=== PATIENT | female | born 1975 | race Caucasian/White ===

== ENCOUNTER → 2023-04-07 14:49 | Outpatient (REF) | payer OTHER, SELFPAY | LOC: RAD 14:49 | PROVIDERS: ATTENDING PHYSICIAN Student in an Organized Health Care Education/Training Program; FAMILY PHYSICIAN Nurse Practitioner Adult Health | DX: I25.42 Coronary artery dissection (principal); I21.4 Non-ST elevation (NSTEMI) myocardial infarction | CPT/HCPCS: 70496; 70498; Q9967 ==

== ENCOUNTER → 2023-04-17 14:03 | Outpatient (REF) | payer OTHER, SELFPAY | LOC: HWRAD 14:03 | PROVIDERS: ATTENDING PHYSICIAN Student in an Organized Health Care Education/Training Program; FAMILY PHYSICIAN Nurse Practitioner Adult Health | DX: I25.42 Coronary artery dissection (principal) | CPT/HCPCS: 74175; Q9967 ==

== ENCOUNTER 2023-04-26 13:20 | Outpatient (RCR) | payer OTHER, SELFPAY | END 2023-04-26 23:59 | disposition home or self-care (01) | LOC: CRHB 13:20 | PROVIDERS: ATTENDING PHYSICIAN Internal Medicine Interventional Cardiology | DX: I21.4 Non-ST elevation (NSTEMI) myocardial infarction (principal) | CPT/HCPCS: 93798 ==

== ENCOUNTER 2023-05-22 17:48 | Outpatient (RCR) | payer OTHER, SELFPAY | END 2023-05-22 23:59 | disposition home or self-care (01) | LOC: CRHB 17:48 | PROVIDERS: ATTENDING PHYSICIAN Internal Medicine Interventional Cardiology | DX: I25.2 Old myocardial infarction (principal); I25.42 Coronary artery dissection | CPT/HCPCS: 93797; 93798 ==

== ENCOUNTER 2023-05-29 17:51 | Emergency (ER) | payer OTHER, SELFPAY ==
[2023-05-29 18:06] VITALS: BP 130/76
[2023-05-29 18:26] LABS: % Basophils 0.4 % (0-2); % Eosinophils 1.3 % (0-6); % Immature Granulocytes 0.2 % (0-0.5); % Lymphocytes 28.5 % (20.5-51.1); % Monocytes 5.3 % (1.7-9.3); % Neutrophils 64.3 % (42.2-75.2); Absolute Eosinophils 0.1 10^3/uL (0-0.7); Absolute Lymphocytes 2.7 10^3/uL (1.2-3.4); Absolute Monocytes 0.5 10^3/uL (0.1-0.6); Absolute Neutrophils 6.1 10^3/uL (1.4-6.5); Hematocrit 38.4 % (37.0-47.0); Mean Corp Hgb Conc. 33.9 g/dL (33.0-37.0); Mean Corpuscular Volume 91.6 fL (81.0-99.0); Mean Platelet Volume 9.1 fL (7.4-10.4); Nucleated Red Blood Cells % 0 %; Platelet Count 269 10^3/uL (130-400); Red Blood Cell Count 4.19 10^6/uL (4.20-5.40); Red Cell Dist. Width 12.8 % (11.5-14.5); White Blood Cell Count 9.4 10^3/uL (4.8-10.8)
[2023-05-29 18:37] LABS: INR 0.97; PT 12.6 Sec (11.4-14.6)
[2023-05-29 18:45] LABS: ALT (SGPT) 20 U/L (0-35); AST (SGOT) 27 U/L (14-36); Albumin 4.4 g/dl (3.5-5.0); Alkaline Phosphatase 89 U/L (38-126); Blood Urea Nitrogen 17 mg/dl (7-17); Calcium 9.4 mg/dl (8.4-10.2); Carbon Dioxide 25 mmol/L (22-30); Chloride 106 mmol/L (98-107); Glucose 119 mg/dl (70-99); Potassium 4.7 mmol/L (3.5-5.1); Sodium 137 mmol/L (135-145); Total Bilirubin 0.3 mg/dl (0.2-1.3); Total Protein 7.7 g/dl (6.3-8.2); eGFR > 60.00
[2023-05-29 18:50] LABS: Troponin I < 0.012 ng/ml
[2023-05-29 20:19] VITALS: BP 133/76
[2023-05-29 21:00] VITALS: BP 111/75
--- NOTE | 2023-05-29 21:23 | ED.GENMED ---
History of Present Illness
General
Chief Complaint: Chest Pain
Source: patient
Exam Limitations: none
Time Seen by Provider: 05/29/23 20:46
Nursing documentation reviewed up to this point in time: agreed with
Travel History
Have you had any contact with someone who has COVID-19?: No
Do you have any symptoms of coronavirus? Fever > 100 degrees, chills, cough, shortness of breath, sore throat, loss of taste or smell, muscle aches, or headache?: No
History of Present Illness
History of Present Illness:
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
followed by a wind turbine erector at [facility]
and dr. walters from [place]
here with chest pressure x 2 days
started spontaneously while sleeping 2 am on 05/27 and has been waxing and waning since onset, mild to moderate in intensity
not worse wth exertion, not pleuritic
no associated sob, nausea, diarpohesis, lightheadedness, syncope, trouble breathing, sweatiness.
since being in the ED room she has not had any pain.
she say maybe she is distracted by watching TV.
Past History
Past History
ED Past Medical History: Other (NSTEMI, coronary artery dissection)
Social History
Tobacco: Non-smoker
Alcohol: Occasional
Drug: None
Personal: Single
Review of Systems
Review of Systems
Allergies reviewed?: Yes
All Other Systems: Not applicable
Phy Exam
Physical Exam
Physical Exam:
GENERAL: Alert , in no apparent distress
EYE: pupils equal and reactive
NECK: Supple
ENT: o/p clr, mmm.
CARDIAC: Regular rate and rhythm .
LUNGS: Clear breath sounds bilaterally, no acute respiratory distress, no wheezes/rales/rhonchi
ABDOMEN: Soft, without focal tenderness, no r/g, no cvat, normal bowel sounds
NEUROLOGICAL: Alert and oriented, no focal neuro deficits
SKIN: Warm and dry, skin intact.
MUSCULOSKELETAL: No edema, well perfused. neg chema's sign
PSYCH: Normal and appropriate interaction.
Scores
Heart Score for Chest Pain Patients
STEMI patient?: No
History: Slightly or Non-Suspicious
ECG: Nonspecific Repolarization
Age: >45 - <65 years
Risk Factors: >/= 3 Risk Factors or History of CAD
Troponin: </= Normal Limit
Heart Score for Chest Pain Patients: 4
Heart Score Risk: 20.3% MACE over next 6 weeks
Course
Orders/Labs/Results
Orders:
Orders
05/29/23 17:58
Electrocardiogram (*1) Urgent
Reason for Study: Chest Pain
EKG- Treatment ONCE
05/29/23 18:21
Complete Blood Count/With Diff Urgent
Comprehensive Metabolic Panel Urgent
Prothrombin Time Urgent
Troponin I Urgent
05/29/23 21:41
Electrocardiogram (*1) Urgent
Reason for Study: Chest Pain
EKG- Treatment ONCE
05/29/23 21:44
Troponin I Urgent
Abnormal Lab Results
05/29/23
18:21
RBC 4.19 L 10^6/uL
(4.20-5.40)
Glucose 119 H mg/dl
(70-99)
05/29/23 18:21
05/29/23 18:21
Vital Signs
Initial and Last Documented VS:
Initial Vital Signs
Temp Pulse Resp BP Pulse Ox
98.7 F 66 18 130/76 100
05/29/23 18:06 05/29/23 18:06 05/29/23 18:06 05/29/23 18:06 05/29/23 18:06
Last Documented Vital Signs
Temp Pulse Resp BP Pulse Ox
98.7 F 54 19 114/72 98
05/29/23 18:06 05/29/23 21:45 05/29/23 21:45 05/29/23 22:44 05/29/23 22:45
MDM/Problems Addressed
Differential Diagnosis Includes:
coronary artery dissection, NSTEMI, acs, chest wall pain
MDM/Problems Addressed:
48 y/o F with h/o SCAD type II RCA 01/19
no interventions
nstemi
here with mild chest pressure x 2 days waxing and waning
not exertional
not severe
no associated symptoms
has not really had symptoms snice being in the ED treatment room
initiial ekg 1 t wave biphaic avL otherwise nonischemic
trop neg
d/w ed attedning
dr. tyson
given that she had pain up until earlier today, wlll repeat the troponina dn EKG but reassured by w/u thus far with neg troponin since symptoms onset nearly 2 daysa go
pt also says this does not feel like when she had her NSTEMI.
repeat ekg and trop unchanged/neg
rediscussed with dr. tyson
d/c home
i did reach out to pt's wind turbine erector dr. walters via [employer] to help arrange f/u.
*Critical Care Note
Total Time (30-74mins, 75-104mins- exclusive of procedures): Not Applicable
ED Attending Note
-
Portions of this chart may have been created with voice recognition software.� Occasional wrong word or��sound alike� substitutions may have occurred due to the inherent limitations of voice recognition software.
Discharge Plan
Departure
Patient Disposition: Home (Routine Discharge)
Date of Disposition: 05/29/23
Time of Disposition: 22:24
Patient with high blood pressure during this ER visit?: No
Condition: Fair
Covid-19: Not Applicable
Discharge Problem:
Chest pain
Instructions: Chest Pain NON-[facility] [employer] Follow Up
Prescriptions:
No Action
multivitamin Tablet
1 tab PO DAILY
escitalopram oxalate [Lexapro] 10 mg Tablet
10 mg PO DAILY
aspirin [Children's Aspirin] 81 mg tablet,chewable
81 mg PO DAILY
metoprolol succinate 25 mg Tablet Extended Release 24 Hr
25 mg PO BID Qty: 60 11RF
rosuvastatin 20 mg Tablet
20 mg PO QPM Qty: 30 11RF
nitroglycerin 0.4 mg tablet, sublingual
0.4 mg sublingual Q5M PRN (Reason: chest pain) Qty: 20 3RF
Referrals:
Sonia Alonso CRNP [Family Provider] - Follow up in 2-3 days
Activity Restrictions/Additional Instructions:
WE ARE NOT SURE THE CAUSE OF YOUR CHEST PRESSURE. TRY TYLENOL FOR PAIN NEEDED
YOU NEED TO SPEAK WITH YOUR FARM OPERATIONS TECHNICAL DIRECTOR TO EE IF THEY WANT ANY MORETESTING OR JUST CLOSELY FOLLOW UP EITHER WITH YOUR FARM OPERATIONS TECHNICAL DIRECTOR OR YOUR FAMILY DOCTOR
RETURN FOR :WORSENING/SEVEREP AIN, TROUBLE BREATHING, LIGHTHEADEDNESS, PASSING OUT, OR ANY CONCERNS.
Interventions
Interventions:
*Risk Screen - Suicide Last Done: 05/29/23 18:06
*General Assessment Last Done: 05/29/23 18:06
*Neglect/Abuse Screening Last Done: 05/29/23 18:06
ED- Fall Risk Assessment Last Done: 05/29/23 20:29
*ED COVID-19 Vaccine History Last Done: 05/29/23 20:29
*Nursing Disposition Last Done: 05/29/23 22:49
ED- Cardiac Assessment Last Done: 05/29/23 20:26
Discharge Date and Time
Discharge Date/Time: 05/29/23 22:49
Print Language: BHUTANESE
[2023-05-29 22:17] LABS: Troponin I < 0.012 ng/ml
[2023-05-29 22:44] VITALS: BP 114/72
== END 2023-05-29 22:49 | disposition home or self-care (01) ==
LOC: EMR 17:51
PROVIDERS: Emergency Medicine; Physician Assistant; EMERGENCY PHYSICIAN Emergency Medicine; FAMILY PHYSICIAN Nurse Practitioner Adult Health
DX: R07.89 Other chest pain (principal)
CPT/HCPCS: 99284; 80053; 84484; 85025; 85610; 93005

== ENCOUNTER 2023-06-07 17:15 | Outpatient (RCR) | payer OTHER, SELFPAY | END 2023-06-07 23:59 | disposition home or self-care (01) | LOC: CRHB 17:15 | PROVIDERS: ATTENDING PHYSICIAN Internal Medicine Interventional Cardiology | DX: I25.2 Old myocardial infarction (principal); I21.4 Non-ST elevation (NSTEMI) myocardial infarction (principal); I10 Essential (primary) hypertension | CPT/HCPCS: 93798 ==